=== PATIENT | female | born 1985 | race Caucasian/White ===

== ENCOUNTER 2017-05-14 05:58 | Day surgery (SDC) | payer OTHER, SELFPAY ==
[2017-05-13 17:13] LABS: Protime INR 0.93
[2017-05-13 17:16] LABS: Urine Appearance CLEAR; Urine Bilirubin NEGATIVE (NEG); Urine Blood NEGATIVE (NEG); Urine Color YELLOW; Urine Glucose NEGATIVE (NEG); Urine Protein NEGATIVE (NEG); Urine Urobilinogen 0.2 mg/dL (0.2-1.0)
[2017-05-13 17:21] LABS: Urine Microscopic Reflex NO UMIC
[2017-05-13 17:27] LABS: Absolute Monocytes 0.5 K/uL (0.1-1.3); Absolute Neutrophil 3.7 K/uL (1.8-8.0); Basophils % 0.8 % (0-1.3); Eosinophils % 2.7 % (0-4.4); Hematocrit 41.2 % (36.0-45.0); Lymphocytes % 31.4 % (15.3-44.8); MCH 30.9 pg (27.0-35.0); MCV 91.9 fL (80-100); Monocytes % 7.8 % (3.3-12.3); RBC Red Blood Cell Count 4.48 M/uL (3.86-4.86)
--- NOTE | 2017-05-13 20:01 | PREOPHP ---
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 The patient is requesting a LEEP procedure for above therapy and diagnosis. Full p reoperative counseling concerning the options including nonsurgical options, infection, blood loss, a nesthetic complications, injury to bladder, bowel, ureter, postoperative complications, clots in the legs. The patient knows fully well this does not guarantee that the problem could not reoccur. Family History: Really not contributory, but there has been lupus in several family members. Matern al grandfather with throat and bone cancer and paternal grandfather with prostate cancer. Past Surgical History: The patient has had . She has had her tonsils removed, stent placem ent in the right ureter, and tooth type surgery. Medications: She was on a cardiac medicine for tachycardia, but has not taken it in over a week. Mcihael chin will though mention that to anesthesia department. Social History: Does not smoke. Physical Examination: HEENT: Clear. Pupils equal, round, and reactive to light and accommodation. Conjunctivae well perf used. No oral, lingual, or buccal lesions. Chest: Clear. Lungs: Clear. Heart: Without murmurs, thrills, heaves, or rubs. Regular rhythm and probably 60 beats per minute. Breast: Not examined. Abdomen: Soft. : The uterus is small. Both adnexa clear. Cervix has no obvious lesions. Plan: We will proceed with a LEEP procedure tomorrow morning. LUCIE/JOSH Voice ID: [id number]
[2017-05-14] MEDS ORDERED: Ringers Lactate 1,000 ML IV ONE (06:39)
[2017-05-14] MEDS ORDERED: CEFAZOLIN/SWI 1gm 1 GM/10 ML SYR ONE (06:39)
[2017-05-14] MEDS ORDERED: PROPOFOL 200 MG/20 ML VIAL IV ONE (07:20)
[2017-05-14] MEDS ORDERED: LIDOCAINE 2% MPF 5 ML VIAL ONE (07:21)
[2017-05-14] MEDS ORDERED: MIDAZOLAM HCL 2 MG/2 ML INJ ONE (07:21)
[2017-05-14] MEDS ORDERED: ONDANSETRON 4 MG/2 ML VIAL ONE ×3 (07:22→09:27)
[2017-05-14] MEDS ORDERED: FENTANYL CITR 100 MCG/2 ML ONE (07:22)
[2017-05-14] MEDS ORDERED: SCOPOLAMINE HYDROBROMIDE PATCH TD ONE (07:25)
[2017-05-14] MEDS ORDERED: SILVER NITRATE 1 APPL TOP ONE (07:37)
[2017-05-14] MEDS ORDERED: LIDOCAINE 1% W/EPI 1:100,000 MDV 50 ML VIAL ONE (07:57)
[2017-05-14 08:33] VITALS: O2SAT 100
[2017-05-14] MEDS: MEPERIDINE HCL 50 MG/ML AMP ONE ×2 (08:52→09:12)
[2017-05-14] MEDS ORDERED: KETOROLAC 30 MG/ML INJ ONE (10:18)
[2017-05-14 10:42] VITALS: BP 99/71; TEMP 97.9
--- NOTE | 2017-05-14 17:25 | OP ---
Surgeon: Guy Stanley MD Indications: A 31-year-old female with cervical dysplasia-recurrent. Procedure: LEEP procedure. Indications: Full preoperative surgical consultation concerning procedures, complications including infection, blood loss, anesthetic complications, injury to bladder, bowel, ureter, postoperative comp lications, clots in legs, and pneumonia. The patient knows this does not represent definitive treatm ent. Anesthesia: General anesthesia endotracheal intubation, Dr. Cervantes, Procedure In Detail: timeout was performed. A 25-gauge needle was used to inject 1% lidocaine with epinephrine into the cervix in 4 quadrant area. At this time, normal LEEP specimen was obtained and removed. Small fragment on the left side at approximately 3 o'clock was also removed. Then, fulgura tion in combination of was used to stop bleeding. Total blood loss less than 20 cc. Afte r thorough inspection, no further bleeding was seen. Procedure was discontinued. The patient tolera yaquelin all procedures well and transferred to the recovery room in good condition. She had been given 1 gram of Ancef for prophylaxis. Final Diagnosis: Cervical dysplasia-recurrent. LEEP procedure performed. DISCHARGE SUMMARY Hospital Course: A 31-year-old female, who underwent a LEEP procedure under general anesthesia. Min imal blood loss. Tolerated all procedures well. Ancef 1 g prophylaxis. She will be observed for e next 2 hours and then dismissed to return to my office in 1 week for followup, to report any temper ature elevation of 100 degrees or greater, severe pain, heavy bleeding, or any other type of abnormal ities. Will call in. Tramadol for analgesia. Final Diagnosis: Recurrent cervical dysplasia. LEEP procedure performed under general anesthesia. LUCIE/JOSH Voice ID: [id number] Report ID: [id number]
== END 2017-05-14 10:33 | disposition home or self-care (01) ==
LOC: OR 05:58
PROVIDERS: ATTEND Specialist
PROC: 0UBC7ZX Excision of Cervix, Via Natural or Artificial Opening, Diagnostic (ICD-10-PCS; principal; 2017-05-14 07:30)
DX: N87.0 Mild cervical dysplasia (principal); Z80.42 Family history of malignant neoplasm of prostate; Z80.0 Family history of malignant neoplasm of digestive organs; Z80.8 Family history of malignant neoplasm of other organs or systems
CPT/HCPCS: 36415; 81003; 84703; 85025; 85610; 85730; 88305; J0690; J2175; J2250; J2405; J3010